=== PATIENT | female | born 1990 | race Caucasian/White ===

== ENCOUNTER 2021-08-19 11:15 | Emergency (ER) | payer OTHER ==
[2021-08-19 11:27] VITALS: BP 130/85; PULSE 85; TEMP 99.5; BMI 24.3
== END 2021-08-19 11:58 | disposition home or self-care (01) ==
LOC: FER 11:15
DX: S50.871A Other superficial bite of right forearm, initial encounter (principal); Y04.1XXA Assault by human bite, initial encounter; Y38.89 Terrorism involving other means
CPT/HCPCS: 99281-25

== ENCOUNTER 2023-01-04 22:18 | Emergency (ER) | payer OTHER ==
[2023-01-04] MEDS ORDERED: IBUPROFEN 600 MG TABLET (FP) PO ONE ×2 (22:22→22:27)
[2023-01-04 22:26] VITALS: BMI 24.3
[2023-01-04 22:49] VITALS: BP 115/72; PULSE 69; RESP 18; TEMP 97.7
== END 2023-01-04 23:18 | disposition home or self-care (01) ==
LOC: FER 22:18
DX: S46.011A Strain of muscle(s) and tendon(s) of the rotator cuff of right shoulder, initial encounter (principal); M25.511 Pain in right shoulder; X58.XXXA Exposure to other specified factors, initial encounter
CPT/HCPCS: 73030-TC-RT-FY; 99283-25